=== PATIENT | male | born 1995 | race Caucasian/White ===

== ENCOUNTER 2019-06-23 18:02 | Emergency (ER) | payer OTHER ==
[~2019-06-23] VITALS: Ht 180.3 cm; Wt 79.8 kg
[2019-06-23 18:25] LABS: ABSOLUTE NEUTROPHILS 5.1 thou/uL (1.4-8.2); BASOPHILS 0.8 % (0.0-2.0); EOSINOPHILS 3.9 % (0.0-3.0); HEMATOCRIT 42.6 % (42.0-52.0); HEMOGLOBIN 14.6 gm/dL (14.0-18.0); LYMPHOCYTES 27.7 % (24.0-44.0); MCH 27.2 pg (26.0-34.0); MCHC 34.3 g/dL (28.0-37.0); MCV 79.3 fL (80.0-100.0); MONOCYTES 7.3 % (1.0-8.0); PLATELET COUNT 234 thou/uL (150-400); POLYS 60.3 % (36.0-66.0); RBC 5.37 mil/uL (4.50-6.00); WBC 8.5 thou/uL (4.0-11.0)
[2019-06-23 18:31] LABS: ANION GAP 10 mmol/L (7-16); BUN 10 mg/dL (7-18); CALCIUM 9.4 mg/dL (8.5-10.1); CHLORIDE 101 mmol/L (98-107); CO2 28 mmol/L (21-32); GLUCOSE 97 mg/dL (74-106); SODIUM 139 mmol/L (136-145)
[2019-06-23 18:41] LABS: ALBUMIN 4.5 g/dL (3.4-5.0); SGOT 13 U/L (15-37); SGPT 41 U/L (30-65); TOTAL BILIRUBIN 0.2 mg/dL (<0.1-1.0); TOTAL PROTEIN 8.3 g/dL (6.4-8.2); TROPONIN-I <0.06 ng/mL (<0.06)
[2019-06-23] MEDS ORDERED: NAPROSYN500 MG PO (18:47)
[2019-06-23 18:51] VITALS: BP 129/66
--- NOTE | 2019-06-25 07:56 | EKG ---
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
== END 2019-06-23 18:51 | disposition home or self-care (01) ==
LOC: ER 18:02
PROVIDERS: Emergency Medicine
DX: R07.89 Other chest pain (principal)